=== PATIENT | female | born 2000 | race Caucasian/White ===

== ENCOUNTER 2018-12-25 08:08 | Inpatient (IN) | payer OTHER ==
[~2018-12-25] VITALS: Ht 157.5 cm; Wt 81.6 kg
--- NOTE | ~2018-12-25 | H ---
[address] [address] HISTORY AND PHYSICAL Name: STEFFANIE HUGHES Room: [address]#: [id number] Admission: 12/25/18 Attend Phys: Shaheed Bhat, Discharge: 12/25/18 Date of : [birth year] Report #: [id number] THIS REPORT FOR: //name// Patient was here less than 24 hour please refer to the final summation note. Patient left AMA. See Emergency Room Summary. By: [id number] Records Staff JESUS /MIKE
[~2018-12-25 08:08] MED LIST: ANTI-ANXIETY; BIRTH CONTROL; IBUPROFEN200 M2 PO; KEFLEX500 M1 PO; MEDROLDOSEPACK PO; NORCO 5-325 TA1 EACH PO; ONDANSETRON HCL4 M2 PO; VENTOLIN HFA 1818 GM INH; ZYRTEC10 M4 PO; [UNRECOGNIZED DRUG - REMARK] PO
[2018-12-25 08:17] VITALS: BP 155/89
[2018-12-25 08:32] LABS: ABSOLUTE BASOPHILS 0.1 thou/uL (0.0-0.2); ABSOLUTE EOSINOPHILS 0.1 thou/uL (0.0-0.7); ABSOLUTE LYMPHOCYTES 2.6 thou/uL (0.8-5.3); ABSOLUTE MONOCYTES 0.7 thou/uL (0.0-1.2); BASOPHILS 1.2 %; HEMATOCRIT 37.7 % (37.0-47.0); HEMOGLOBIN 13.2 gm/dL (12.0-15.0); LYMPHOCYTES 34.1 %; MCV 85.6 fL (80.0-100.0); MPV 7.4 fl. (7.2-11.1); NUCLEATED RBCS 0 /100WBC; PLATELET COUNT* 317 thou/uL (150-400); POLYS 53.7 %; RBC 4.41 mil/uL (4.20-5.00); RDW-CV 13.4 % (10.5-14.5); WBC 7.5 thou/uL (4.0-11.0)
[2018-12-25 08:43] LABS: CALCIUM 9.7 mg/dL (8.5-10.1); CREATININE 0.8 mg/dL (0.6-1.3); POTASSIUM 3.9 mmol/L (3.5-5.1)
[2018-12-25 08:48] LABS: TOTAL BILIRUBIN 0.3 mg/dL (<0.1-1.0); TOTAL PROTEIN 7.7 g/dL (6.4-8.2)
--- NOTE | 2018-12-25 09:09 | NUR ---
PATIENT WENT FOR A SCAN AND CAME BACK. SHE IS STARTING TO WAKE UP A LITTLE. SHE IS ABLE TO ANSWER ME IN SHORT ANSWERS.
[2018-12-25 09:50] LABS: URINE BILIRUBIN NEGATIVE (Negative); URINE BLOOD 3+ (Negative); URINE CLARITY CLEAR; URINE COLOR YELLOW; URINE GLUCOSE-RANDOM NEGATIVE (Negative); URINE KETONES NEGATIVE (Negative); URINE LEUKOCYTES-REFLEX NEGATIVE (Negative); URINE NITRITE-REFLEX NEGATIVE (Negative); URINE PROTEIN TRACE (Negative); URINE SPECIFIC GRAVITY 1.025 (1.005-1.030)
[2018-12-25 09:57] LABS: AMP/METHAMP POSITIVE (Negative); BARBITURATES Negative (Negative); BENZODIAZEPINES Negative (Negative); COCAINE Negative (Negative); METHADONE Negative (Negative); OPIATES Negative (Negative); PCP Negative (Negative); THC POSITIVE (Negative)
[2018-12-25 10:00] LABS: BACTERIA-REFLEX 1-9 Few /HPF (None Seen); CASTS None Seen /LPF (None Seen); CRYSTALS None Seen /LPF (None Seen); MUCUS 0-3 Light strn/LPF (None Seen); SQUAMOUS 0-3 Few /LPF (0-3); URINE WBC-REFLEX 0-5 Rare /HPF (0-5)
--- NOTE | 2018-12-25 18:05 | EKG ---
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
[2018-12-25 18:11] VITALS: BP 123/68
--- NOTE | 2018-12-25 18:42 | NUR ---
PT IS REFUSING TO STAY AND BE ADMITTED. DR CANTRELL EXPLAINED RISK AND BENEFITS TO PATIENT. I WENT OVER AGAIN AND PT INSISTED ON LEAVING. AMA FORM SIGNED.
[2018-12-25 18:46] VITALS: BP 123/68
[2018-12-25 19:05] VITALS: BP 123/68
== END 2018-12-25 18:45 | disposition left against medical advice (07) | DRG 101 ==
LOC: M.ERS 08:08 → M.TBA-ER 10:45
PROVIDERS: Emergency Medicine Emergency Medical Services; ADMIT Family Medicine
DX: G40.89 Other seizures (principal); Z79.899 Other long term (current) drug therapy; Z53.29 Procedure and treatment not carried out because of patient's decision for other reasons